=== PATIENT | female | born 2005 | race Hispanic/Latino ===

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

== ENCOUNTER → 2023-01-21 | Outpatient (REF) | payer OTHER ==
[~2023-01-21] MED LIST changes: +LAMO25TA4 PO
[2023-01-21 18:16] LABS: BASO # 0.1 10^3/uL (0.0-0.2); BASO % 0.7 % (0.0-1.0); EOS # 0.4 10^3/uL (0.0-0.5); EOS % 4.1 % (0.0-3.0); HEMATOCRIT 33.4 % (36.0-47.0); HEMOGLOBIN 11.4 g/dl (12.0-15.5); LYMPH % 18.2 % (24.0-44.0); MEAN CORPUSCULAR HEMOGLOBIN 27.7 pg (27.0-33.0); MEAN CORPUSCULAR HGB CONC 34.1 g/dl (32.0-36.5); MEAN CORPUSCULAR VOLUME 81.3 fl (80.0-96.0); MONO # 0.6 10^3/uL (0.0-0.8); MONO % 5.8 % (2.0-8.0); NEUTROPHILS # 7.7 10^3/uL (1.5-8.5); NEUTROPHILS % 70.9 % (36.0-66.0); PLATELET COUNT, AUTOMATED 291 10^3/uL (150-450); RED BLOOD COUNT 4.11 10^6/uL (4.00-5.40); WHITE BLOOD COUNT 10.8 10^3/uL (4.0-10.0)
[2023-01-21 18:48] LABS: ALBUMIN 3.6 G/DL (3.2-5.2); ALKALINE PHOSPHATASE 67 U/L (46-116); ALT/SGPT 12 U/L (7.0-40); AST/SGOT 17 U/L (<34); BILIRUBIN,TOTAL 0.3 MG/DL (0.3-1.2); BLOOD UREA NITROGEN 7 MG/DL (9-23); CALCIUM LEVEL 9.2 MG/DL (8.5-10.1); CARBON DIOXIDE LEVEL 25 MMOL/L (20-31); CHLORIDE LEVEL 108 MMOL/L (98-107); GLUCOSE, FASTING 83 MG/DL (60-100); SODIUM LEVEL 141 MMOL/L (136-145); TOTAL PROTEIN 5.6 G/DL (5.7-8.2)
[2023-01-21 18:56] LABS: HCG, SERUM QUALITATIVE NEGATIVE (NEGATIVE)
== END ==
LOC: M LAB REF 16:37
PROVIDERS: ATTEND Nurse Practitioner Family
DX: R56.9 Unspecified convulsions (principal)

== ENCOUNTER → 2023-03-01 | Outpatient (REF) | payer OTHER | LOC: M LAB REF 16:20 | PROVIDERS: ATTEND Nurse Practitioner Family | DX: E83.42 Hypomagnesemia (principal) ==

== ENCOUNTER 2023-03-19 18:30 | Emergency (ER) | payer OTHER ==
[~2023-03-19] VITALS: Ht 162.6 cm; Wt 48.6 kg
[2023-03-19 21:27] LABS: RSV AMPLIFICATION NEGATIVE (NEGATIVE)
[2023-03-19 22:27] VITALS: BP 104/62; TEMP 98.5; O2SAT 98
[2023-03-19] MEDS ORDERED: DOXYCYCLINE HYCLATE 100MG TABLET PO ONE (22:45)
[2023-03-19] MEDS ORDERED: AFRISPR3 (23:10)
[2023-03-19] MEDS ORDERED: FLON1SPR NARES (23:10)
[2023-03-19] MEDS ORDERED: DOXY100T PO (23:10)
== END 2023-03-19 23:24 | disposition home or self-care (01) ==
LOC: M ED 18:30
DX: H65.03 Acute serous otitis media, bilateral (principal); L03.032 Cellulitis of left toe; G40.909 Epilepsy, unspecified, not intractable, without status epilepticus; J45.909 Unspecified asthma, uncomplicated; F17.290 Nicotine dependence, other tobacco product, uncomplicated

== ENCOUNTER → 2023-06-29 | Outpatient (REF) | payer OTHER ==
[~2023-06-29] MED LIST changes: +AFRISPR3; +DOXY100T PO; +FLON1SPR NARES
== END ==
LOC: M LAB REF 10:23
PROVIDERS: ATTEND Nurse Practitioner Family
DX: J02.9 Acute pharyngitis, unspecified (principal)

== ENCOUNTER 2023-07-12 13:57 | Emergency (ER) | payer OTHER ==
[~2023-07-12] VITALS: Ht 157.5 cm; Wt 48.9 kg
[2023-07-12 15:12] LABS: IONIZED CALCIUM 4.7 MG/DL (4.5-5.3)
[2023-07-12] MEDS: NS 1,000 ML IV ONE (15:13)
[2023-07-12] MEDS: lamoTRIgine 25MG TAB PO ONE ×2 (15:13→17:23)
[2023-07-12] MEDS: levETIRAcetam INJection 1,000 MG in D5W 100 ML IV ONE (15:13)
[2023-07-12 15:27] LABS: BASO # 0.1 10^3/uL (0.0-0.2); BASO % 0.6 % (0.0-1.0); EOS # 0.4 10^3/uL (0.0-0.5); EOS % 4.1 % (0.0-3.0); HEMATOCRIT 35.1 % (36.0-47.0); HEMOGLOBIN 12.2 g/dl (12.0-15.5); LYMPH # 2.3 10^3/uL (1.5-5.0); LYMPH % 27.5 % (24.0-44.0); MEAN CORPUSCULAR HEMOGLOBIN 27.1 pg (27.0-33.0); MEAN CORPUSCULAR HGB CONC 34.8 g/dl (32.0-36.5); MONO # 0.9 10^3/uL (0.0-0.8); MONO % 10.9 % (2.0-8.0); NEUTROPHILS # 4.8 10^3/uL (1.5-8.5); NEUTROPHILS % 56.5 % (36.0-66.0); PLATELET COUNT, AUTOMATED 357 10^3/uL (150-450); WHITE BLOOD COUNT 8.5 10^3/uL (4.0-10.0)
[2023-07-12 15:52] LABS: ALKALINE PHOSPHATASE 61 U/L (46-116); ALT/SGPT 20 U/L (7.0-40); AST/SGOT 32 U/L (<34); BILIRUBIN,DIRECT 0.1 MG/DL (<0.4); BILIRUBIN,TOTAL 0.4 MG/DL (0.3-1.2); BLOOD UREA NITROGEN 13 MG/DL (9-23); CALCIUM LEVEL 9.6 MG/DL (8.5-10.1); CARBON DIOXIDE LEVEL 25 MMOL/L (20-31); CHLORIDE LEVEL 101 MMOL/L (98-107); CREATININE FOR GFR 0.47 MG/DL (0.55-1.30); GLUCOSE, FASTING 82 MG/DL (60-100); MAGNESIUM LEVEL 1.7 MG/DL (1.8-2.4); PHOSPHORUS LEVEL 3.3 MG/DL (2.5-4.9); POTASSIUM SERUM 4.2 MMOL/L (3.5-5.1); SODIUM LEVEL 137 MMOL/L (136-145); TOTAL PROTEIN 6.6 G/DL (5.7-8.2)
[2023-07-12 16:08] LABS: RSV AMPLIFICATION NEGATIVE (NEGATIVE)
[2023-07-12] MEDS ORDERED: KEPP10002 PO (17:52)
[2023-07-12] MEDS ORDERED: LAMO100T3 PO (17:52)
[2023-07-12] MEDS ORDERED: KEPP250T5 PO (18:23)
[2023-07-12 18:30] VITALS: BP 105/62; TEMP 98.7; O2SAT 99
== END 2023-07-12 18:30 | disposition home or self-care (01) ==
LOC: M ED 13:57
DX: G40.909 Epilepsy, unspecified, not intractable, without status epilepticus (principal); U07.1 COVID-19; Z91.018 Allergy to other foods; Z79.899 Other long term (current) drug therapy; Z79.2 Long term (current) use of antibiotics; Z79.51 Long term (current) use of inhaled steroids
CPT/HCPCS: 70450; 80048; 80076; 80175; 80180; 82140; 82330; 83605; 83735; 84100; 85025; 87040; 87631; 93041; 94760; 96361; 96365; 99285; J1953

== ENCOUNTER → 2023-07-29 | Outpatient (REF) | payer OTHER | LOC: EEVIPCON 16:46 → M LAB REF 16:46 | PROVIDERS: ATTEND Physician Assistant | DX: L03.211 Cellulitis of face (principal) ==

== ENCOUNTER 2023-08-30 14:00 | Emergency (ER) | payer OTHER ==
[~2023-08-30] VITALS: Ht 162.6 cm; Wt 49.5 kg
[2023-08-30 14:01] VITALS: BP 129/87; TEMP 97.8; O2SAT 99
[2023-08-30] MEDS ORDERED: KEPP250T5 PO (15:02)
[2023-08-30] MEDS ORDERED: KEPP10002 PO (15:02)
[2023-08-30] MEDS ORDERED: LAMO100T80 PO (15:02)
== END 2023-08-30 15:23 | disposition home or self-care (01) ==
LOC: M ED 14:00
DX: Z76.0 Encounter for issue of repeat prescription (principal)

== ENCOUNTER 2023-09-01 16:55 | Emergency (ER) | payer OTHER ==
[~2023-09-01] VITALS: Ht 162.6 cm; Wt 50.0 kg
[2023-09-01 16:55] VITALS: BP 110/73; TEMP 98.8; O2SAT 96
== END 2023-09-01 19:04 | disposition left against medical advice (07) ==
LOC: M ED 16:55
DX: Z53.21 Procedure and treatment not carried out due to patient leaving prior to being seen by health care provider (principal)

== ENCOUNTER 2023-10-08 16:08 | Emergency (ER) | payer OTHER ==
[~2023-10-08] VITALS: Ht 162.6 cm; Wt 52.3 kg
[2023-10-08] MEDS ORDERED: VANCOMYCIN HCL 1,000 MG in IV FLUID PLACE HOLDER 1 EA IV ONE (18:40)
[2023-10-08 18:50] LABS: BASO # 0.1 10^3/uL (0.0-0.2); BASO % 0.7 % (0.0-1.0); EOS # 0.3 10^3/uL (0.0-0.5); EOS % 3.2 % (0.0-3.0); HEMATOCRIT 36.1 % (36.0-47.0); HEMOGLOBIN 11.8 g/dl (12.0-15.5); LYMPH # 1.9 10^3/uL (1.5-5.0); LYMPH % 19.3 % (24.0-44.0); MEAN CORPUSCULAR HEMOGLOBIN 25.4 pg (27.0-33.0); MEAN CORPUSCULAR HGB CONC 32.7 g/dl (32.0-36.5); MEAN CORPUSCULAR VOLUME 77.6 fl (80.0-96.0); MONO # 0.9 10^3/uL (0.0-0.8); MONO % 9.4 % (2.0-8.0); NEUTROPHILS # 6.5 10^3/uL (1.5-8.5); PLATELET COUNT, AUTOMATED 408 10^3/uL (150-450); RED BLOOD COUNT 4.65 10^6/uL (4.00-5.40); WHITE BLOOD COUNT 9.7 10^3/uL (4.0-10.0)
[2023-10-08 18:55] LABS: ERYTHROCYTE SEDIMENTATION RATE 19 mm/hr (0-20)
[2023-10-08] MEDS: NS 1,000 ML IV ONE (19:22)
[2023-10-08] MEDS: KETOROLAC 30 MG/ML 1ML VIAL IV ONE (19:23)
[2023-10-08] MEDS: methylPREDNISolone 40MG 1ML VIAL IV ONE (19:23)
[2023-10-08] MEDS: VANCOMYCIN HCL 1,000 MG, VIAL MATE ADAPTER 1 EACH in D5W 250 ML IV ONE (19:24)
[2023-10-08] MEDS: diphenhydrAMINE 50MG/ML VIAL IV STA (20:36)
[2023-10-08] MEDS: ONDANSETRON 4MG 2ML VIAL IV ONE (20:36)
[2023-10-08] MEDS: MORPHINE 2 MG/ML 1ML VIAL IV ONE (20:36)
[2023-10-08 21:51] VITALS: BP 93/58; TEMP 97.3; O2SAT 98
[2023-10-08] MEDS: LIDOCAINE 2% MDV 20ML VIAL SC ONE (22:00)
[2023-10-08] MEDS ORDERED: BACT800T5 PO (22:54)
[2023-10-08] MEDS ORDERED: LEVE250T5 PO (23:10)
[2023-10-08] MEDS ORDERED: HOME MED LIST COMPLETE! XX SCH (23:15)
== END 2023-10-08 22:55 | disposition left against medical advice (07) ==
LOC: M ED 16:08
DX: L02.413 Cutaneous abscess of right upper limb (principal); R56.9 Unspecified convulsions; J45.909 Unspecified asthma, uncomplicated; F41.9 Anxiety disorder, unspecified; F17.290 Nicotine dependence, other tobacco product, uncomplicated; Z79.899 Other long term (current) drug therapy
CPT/HCPCS: 76882; 80047; 83605; 84702; 85025; 85652; 86140; 87040; 87070; 87077; 87186; 87205; 96374; 96375; 99281; J1200; J1885; J2405; J2919; J3370

== ENCOUNTER 2023-10-09 18:50 | Emergency (ER) | payer OTHER ==
[~2023-10-09] VITALS: Ht 162.6 cm; Wt 52.3 kg
[~2023-10-09 18:50] MED LIST changes: +LEVE250T5 PO
[2023-10-09] MEDS ORDERED: ISOVUE-370 76% 100ML VIAL As Ordered ONE (21:02)
[2023-10-09 21:23] LABS: BASO # 0.1 10^3/uL (0.0-0.2); BASO % 0.6 % (0.0-1.0); EOS # 0.2 10^3/uL (0.0-0.5); EOS % 2.1 % (0.0-3.0); HEMATOCRIT 31.6 % (36.0-47.0); HEMOGLOBIN 10.4 g/dl (12.0-15.5); LYMPH # 2.9 10^3/uL (1.5-5.0); LYMPH % 29.7 % (24.0-44.0); MEAN CORPUSCULAR HEMOGLOBIN 25.8 pg (27.0-33.0); MEAN CORPUSCULAR HGB CONC 32.9 g/dl (32.0-36.5); MEAN CORPUSCULAR VOLUME 78.4 fl (80.0-96.0); MONO # 1.1 10^3/uL (0.0-0.8); MONO % 11.6 % (2.0-8.0); NEUTROPHILS # 5.4 10^3/uL (1.5-8.5); NEUTROPHILS % 55.3 % (36.0-66.0); PLATELET COUNT, AUTOMATED 411 10^3/uL (150-450); RED BLOOD COUNT 4.03 10^6/uL (4.00-5.40); WHITE BLOOD COUNT 9.8 10^3/uL (4.0-10.0)
[2023-10-09 21:37] LABS: ERYTHROCYTE SEDIMENTATION RATE 9 mm/hr (0-20)
[2023-10-09] MEDS: KETOROLAC 30 MG/ML 1ML VIAL IV ONE (21:49)
[2023-10-09] MEDS: DALBAVANCIN 1,500 MG in D5W 250 ML IV ONE (21:50)
[2023-10-09 21:58] VITALS: BP 99/63; TEMP 97.7; O2SAT 100
[2023-10-09 21:58] LABS: BLOOD UREA NITROGEN 7 MG/DL (9-23); CALCIUM LEVEL 9.3 MG/DL (8.5-10.1); CARBON DIOXIDE LEVEL 28 MMOL/L (20-31); CHLORIDE LEVEL 107 MMOL/L (98-107); CREATININE FOR GFR 0.59 MG/DL (0.55-1.30); GLUCOSE, FASTING 65 MG/DL (60-100); HCG, SERUM QUALITATIVE NEGATIVE (NEGATIVE); POTASSIUM SERUM 3.9 MMOL/L (3.5-5.1); SODIUM LEVEL 141 MMOL/L (136-145)
[2023-10-09] MEDS: NS 1,000 ML IV ONE (22:25)
[2023-10-09] MEDS: diphenhydrAMINE 50MG/ML VIAL IV STA (22:25)
== END 2023-10-09 23:47 | disposition left against medical advice (07) ==
LOC: M ED 18:50
DX: L02.413 Cutaneous abscess of right upper limb (principal); B95.61 Methicillin susceptible Staphylococcus aureus infection as the cause of diseases classified elsewhere; Z53.9 Procedure and treatment not carried out, unspecified reason; J45.909 Unspecified asthma, uncomplicated; R56.9 Unspecified convulsions; Z79.899 Other long term (current) drug therapy; Z91.010 Allergy to peanuts
CPT/HCPCS: 71260; 80048; 83605; 84703; 85025; 85652; 86140; 96365; 96375; 99284; J0875; J1200; J1885; Q9967

== ENCOUNTER 2024-07-31 16:05 | Emergency (ER) | payer OTHER ==
[~2024-07-31] VITALS: Ht 160 cm; Wt 50.1 kg
[~2024-07-31 16:05] MED LIST changes: +EMTRICITABINE/TENOFOVIR 200MG/300MG TABLET PO SCH; +RALTEGRAVIR 400 MG TAB (ISENTRESS) PO SCH
[2024-07-31 16:12] VITALS: TEMP 98.1
[2024-07-31] MEDS ORDERED: EMTR1TAB16 PO (17:05)
[2024-07-31] MEDS ORDERED: RALT40TA PO (17:05)
[2024-07-31] MEDS ORDERED: EXPOSURE KIT-ADULT 7 DAY SUPPLY PO ONE (17:10)
[2024-07-31 17:24] LABS: BASO # 0.1 10^3/uL (0.0-0.2); BASO % 0.5 % (0.0-1.0); EOS # 0.2 10^3/uL (0.0-0.5); EOS % 1.4 % (0.0-3.0); HEMATOCRIT 34.8 % (36.0-47.0); HEMOGLOBIN 11.3 g/dl (12.0-15.5); LYMPH # 2.7 10^3/uL (1.5-5.0); LYMPH % 25.5 % (24.0-44.0); MEAN CORPUSCULAR HEMOGLOBIN 24.9 pg (27.0-33.0); MEAN CORPUSCULAR HGB CONC 32.5 g/dl (32.0-36.5); MEAN CORPUSCULAR VOLUME 76.7 fl (80.0-96.0); MONO # 0.7 10^3/uL (0.0-0.8); MONO % 7.1 % (2.0-8.0); NEUTROPHILS # 6.8 10^3/uL (1.5-8.5); NEUTROPHILS % 65.2 % (36.0-66.0); PLATELET COUNT, AUTOMATED 473 10^3/uL (150-450); RED BLOOD COUNT 4.54 10^6/uL (4.00-5.40); WHITE BLOOD COUNT 10.5 10^3/uL (4.0-10.0)
[2024-07-31] MEDS: LIDOCAINE 1% SDV 5ML VIAL DILUENT ONE (17:29)
[2024-07-31] MEDS: cefTRIAXone 500MG VIAL IM ONE (17:29)
[2024-07-31] MEDS: AZITHROMYCIN 250MG TABLET PO ONE (17:30)
[2024-07-31 17:50] LABS: ALBUMIN 3.6 G/DL (3.2-5.2); ALKALINE PHOSPHATASE 62 U/L (35-104); ALT/SGPT 13 U/L (7.0-40); AST/SGOT 15 U/L (<34); BILIRUBIN,TOTAL 0.3 MG/DL (0.3-1.2); BLOOD UREA NITROGEN 8 MG/DL (9-23); CALCIUM LEVEL 9.1 MG/DL (8.5-10.1); CARBON DIOXIDE LEVEL 27 MMOL/L (20-31); CHLORIDE LEVEL 108 MMOL/L (98-107); CREATININE FOR GFR 0.65 MG/DL (0.55-1.30); GLOMERULAR FILTRATION RATE > 90.0 (>60); GLUCOSE, FASTING 98 MG/DL (60-100); POTASSIUM SERUM 3.9 MMOL/L (3.5-5.1); SODIUM LEVEL 144 MMOL/L (136-145); TOTAL PROTEIN 5.9 G/DL (5.7-8.2)
[2024-07-31 17:59] LABS: HEPATITIS B SURFACE ANTIBODY NEGATIVE (POSITIVE)
[2024-07-31 18:02] LABS: HCG, SERUM QUALITATIVE NEGATIVE (NEGATIVE)
[2024-07-31 18:11] LABS: HEPATITIS B SURFACE ANTIGEN NEGATIVE (NEGATIVE)
[2024-07-31 18:23] LABS: HIV 1&2 SCREEN NEGATIVE (NEGATIVE)
[2024-07-31 18:31] LABS: HEPATITIS C VIRUS ABY INDEX < 0.02 INDEX (<0.8)
[2024-07-31] MEDS: RALTEGRAVIR 400 MG TAB (ISENTRESS) PO ONE (18:46)
[2024-07-31] MEDS: ULIPRISTAL ACETATE 30MG TAB (ELLA) PO ONE (18:46)
[2024-07-31] MEDS: EMTRICITABINE/TENOFOVIR 200MG/300MG TABLET PO ONE (18:46)
[2024-07-31] MEDS: metroNIDAZOLE (FLAGYL) 500MG TABLET PO ONE (18:47)
[2024-07-31] MEDS: HEPATITIS B VACCINE 20MCG/ML 1ML SYRINGE (ADULT DOSE) IM.IMMUN ONE (18:55)
[2024-07-31 19:14] VITALS: BP 110/56; O2SAT 98
== END 2024-07-31 19:15 | disposition home or self-care (01) ==
LOC: M ED 16:05
DX: T76.21XA Adult sexual abuse, suspected, initial encounter (principal); Y92.009 Unspecified place in unspecified non-institutional (private) residence as the place of occurrence of the external cause; G40.909 Epilepsy, unspecified, not intractable, without status epilepticus; J45.909 Unspecified asthma, uncomplicated; Z79.899 Other long term (current) drug therapy; Z23 Encounter for immunization
CPT/HCPCS: 36415; 80053; 84703; 85025; 86706; 86780; 86803; 87340; 87389; 90471; 90746; 96372; 99283; J0696

== ENCOUNTER 2024-08-19 19:01 | Emergency (ER) | payer OTHER ==
[~2024-08-19] VITALS: Ht 160 cm; Wt 51.6 kg
[~2024-08-19 19:01] MED LIST changes: +EMTR1TAB16 PO; -EMTRICITABINE/TENOFOVIR 200MG/300MG TABLET PO SCH; +RALT40TA PO; -RALTEGRAVIR 400 MG TAB (ISENTRESS) PO SCH
[2024-08-19 20:56] VITALS: BP 109/71; TEMP 99.4; O2SAT 100
[2024-08-21] MEDS ORDERED: LAMO100T3 PO (18:36)
[2024-08-21] MEDS ORDERED: KEPP10002 PO (18:36)
[2024-08-21] MEDS ORDERED: LEVE250T5 PO (18:36)
== END 2024-08-20 00:05 | disposition left against medical advice (07) ==
LOC: M ED 19:01
DX: Z53.21 Procedure and treatment not carried out due to patient leaving prior to being seen by health care provider (principal)

== ENCOUNTER 2024-08-21 16:11 | Emergency (ER) | payer OTHER ==
[~2024-08-21] VITALS: Ht 160 cm; Wt 45.2 kg
[2024-08-21] MEDS: levETIRAcetam INJection 1,500 MG in IV 1 EA IV ONE (16:42)
[2024-08-21 16:49] LABS: HEMATOCRIT 38.8 % (36.0-47.0); HEMOGLOBIN 12.6 g/dl (12.0-15.5); MEAN CORPUSCULAR HEMOGLOBIN 25.6 pg (27.0-33.0); MEAN CORPUSCULAR HGB CONC 32.5 g/dl (32.0-36.5); MEAN CORPUSCULAR VOLUME 78.9 fl (80.0-96.0); PLATELET COUNT, AUTOMATED 400 10^3/uL (150-450); RED BLOOD COUNT 4.92 10^6/uL (4.00-5.40); WHITE BLOOD COUNT 13.5 10^3/uL (4.0-10.0)
[2024-08-21 17:03] VITALS: TEMP 98
[2024-08-21 17:12] LABS: HCG, SERUM QUALITATIVE NEGATIVE (NEGATIVE)
[2024-08-21 17:14] LABS: BLOOD UREA NITROGEN 13 MG/DL (9-23); CARBON DIOXIDE LEVEL 16 MMOL/L (20-31); CHLORIDE LEVEL 104 MMOL/L (98-107); CREATININE FOR GFR 0.67 MG/DL (0.55-1.30); GLOMERULAR FILTRATION RATE > 90.0 (>60); GLUCOSE, FASTING 100 MG/DL (60-100); POTASSIUM SERUM 4.2 MMOL/L (3.5-5.1); SODIUM LEVEL 141 MMOL/L (136-145)
[2024-08-21 18:30] VITALS: BP 89/63; O2SAT 98
[2024-08-21] MEDS ORDERED: LEVE250T5 PO (18:36)
[2024-08-21] MEDS ORDERED: KEPP10002 PO (18:36)
[2024-08-21] MEDS ORDERED: LAMO100T3 PO (18:36)
[2024-08-22] MEDS ORDERED: LAMO100T3 PO (04:03)
[2024-08-22] MEDS ORDERED: LEVE250T5 PO (04:03)
[2024-08-25 23:07] LABS: LEVETIRACETAM (KEPPRA) < 2.0 mcg/mL (6.0-46.0)
== END 2024-08-21 18:55 | disposition home or self-care (01) ==
LOC: M ED 16:11
DX: G40.909 Epilepsy, unspecified, not intractable, without status epilepticus (principal); J45.909 Unspecified asthma, uncomplicated; Z79.899 Other long term (current) drug therapy; Z91.018 Allergy to other foods
CPT/HCPCS: 80048; 80175; 80177; 84703; 85027; 96365; 99284; J1953

== ENCOUNTER 2024-08-21 22:12 | Emergency (ER) | payer OTHER ==
[~2024-08-21] VITALS: Ht 157.5 cm; Wt 44.9 kg
[2024-08-21 22:48] LABS: VENOUS BASE EXCESS -4.1 (-2.0-2.0); VENOUS HCO3 19.3 MMOL/L (23.0-27.0); VENOUS O2 SATURATION 96.6 % (60.0-80.0); VENOUS PARTIAL PRESSURE CO2 30.5 mmHg (38.0-50.0); VENOUS PARTIAL PRESSURE O2 114.4 mmHg (30.0-50.0); VENOUS TOTAL CO2 20.3 MMOL/L (24.0-28.0)
[2024-08-21 22:58] LABS: BASO # 0.1 10^3/uL (0.0-0.2); BASO % 0.8 % (0.0-1.0); EOS # 0.1 10^3/uL (0.0-0.5); EOS % 1.3 % (0.0-3.0); HEMATOCRIT 33.5 % (36.0-47.0); HEMOGLOBIN 11.3 g/dl (12.0-15.5); LYMPH # 2.5 10^3/uL (1.5-5.0); LYMPH % 25.3 % (24.0-44.0); MEAN CORPUSCULAR HGB CONC 33.7 g/dl (32.0-36.5); MEAN CORPUSCULAR VOLUME 77.2 fl (80.0-96.0); MONO # 1.2 10^3/uL (0.0-0.8); MONO % 11.9 % (2.0-8.0); NEUTROPHILS # 5.8 10^3/uL (1.5-8.5); NEUTROPHILS % 60.4 % (36.0-66.0); PLATELET COUNT, AUTOMATED 316 10^3/uL (150-450); RED BLOOD COUNT 4.34 10^6/uL (4.00-5.40); WHITE BLOOD COUNT 9.7 10^3/uL (4.0-10.0)
[2024-08-21] MEDS: lamoTRIgine 100MG TAB PO ONE (23:07)
[2024-08-21 23:23] LABS: ALBUMIN 4.3 G/DL (3.2-5.2); ALKALINE PHOSPHATASE 62 U/L (35-104); ALT/SGPT 22 U/L (7.0-40); AST/SGOT 21 U/L (<34); BILIRUBIN,DIRECT 0.2 MG/DL (<0.4); BILIRUBIN,TOTAL 0.6 MG/DL (0.3-1.2); BLOOD UREA NITROGEN 12 MG/DL (9-23); CALCIUM LEVEL 9.7 MG/DL (8.5-10.1); CARBON DIOXIDE LEVEL 22 MMOL/L (20-31); CHLORIDE LEVEL 107 MMOL/L (98-107); CREATININE FOR GFR 0.66 MG/DL (0.55-1.30); GLOMERULAR FILTRATION RATE > 90.0 (>60); GLUCOSE, FASTING 81 MG/DL (60-100); PHOSPHORUS LEVEL 4.2 MG/DL (2.5-4.9); SODIUM LEVEL 142 MMOL/L (136-145); TOTAL PROTEIN 6.6 G/DL (5.7-8.2)
[2024-08-22] MEDS ORDERED: LAMO100T3 PO (04:03)
[2024-08-22] MEDS ORDERED: LEVE250T5 PO (04:03)
[2024-08-22] MEDS: lamoTRIgine 100MG TAB PO ONE (04:06)
[2024-08-22] MEDS: NS (Normal Saline) 0.9% 1,000 ML IV ONE (04:11)
[2024-08-22 05:30] VITALS: BP 105/58; TEMP 98.3; O2SAT 100
== END 2024-08-22 05:50 | disposition home or self-care (01) ==
LOC: M ED 22:12
DX: G40.89 Other seizures (principal); F41.9 Anxiety disorder, unspecified; Z79.899 Other long term (current) drug therapy; Z91.018 Allergy to other foods

== ENCOUNTER 2024-10-26 14:07 | Emergency (ER) | payer MEDICAID, OTHER ==
[~2024-10-26] VITALS: Ht 160 cm; Wt 53.3 kg
[~2024-10-26 14:07] MED LIST changes: +CIPRHCOTIC OTIC; +LAMO-18; +LAMO-18 PO; -LAMO25TA4; -LAMO25TA4 PO; +LEVE10003 PO; +SERT25TA21 PO
[2024-10-26] MEDS ORDERED: LAMO100T80 PO (21:45)
[2024-10-26 21:49] VITALS: BP 108/59; TEMP 97.2; O2SAT 99
== END 2024-10-26 21:50 | disposition home or self-care (01) ==
LOC: M ED 14:07
DX: Z76.0 Encounter for issue of repeat prescription (principal); G40.909 Epilepsy, unspecified, not intractable, without status epilepticus; F17.290 Nicotine dependence, other tobacco product, uncomplicated; Z79.899 Other long term (current) drug therapy; Z91.018 Allergy to other foods

== ENCOUNTER 2024-12-11 18:53 | Emergency (ER) | payer OTHER ==
[~2024-12-11] VITALS: Ht 160 cm; Wt 52.4 kg
[2024-12-11] MEDS ORDERED: KEPP250T5 PO (22:46)
[2024-12-11] MEDS ORDERED: LAMI1TAB7 PO (22:46)
[2024-12-11] MEDS ORDERED: KEPP10002 PO (22:46)
[2024-12-12] MEDS: levETIRAcetam INJection 1,000 MG in IV 1 EA IV ONE (00:04)
[2024-12-12 00:20] LABS: VENOUS BASE EXCESS -6.4 (-2.0-2.0); VENOUS HCO3 17.7 MMOL/L (23.0-27.0); VENOUS O2 SATURATION 97.3 % (60.0-80.0); VENOUS PARTIAL PRESSURE CO2 30.8 mmHg (38.0-50.0); VENOUS PARTIAL PRESSURE O2 164.1 mmHg (30.0-50.0); VENOUS PH 7.377 UNITS (7.330-7.430); VENOUS STANDARD HCO3 19.2 MMOL/L; VENOUS TOTAL CO2 18.6 MMOL/L (24.0-28.0)
[2024-12-12 00:21] LABS: BASO # 0.1 10^3/uL (0.0-0.2); BASO % 0.7 % (0.0-1.0); EOS # 0.3 10^3/uL (0.0-0.5); EOS % 2.8 % (0.0-3.0); LYMPH # 2.7 10^3/uL (1.5-5.0); LYMPH % 27.9 % (24.0-44.0); MONO # 1.1 10^3/uL (0.0-0.8); MONO % 11.2 % (2.0-8.0); NEUTROPHILS # 5.5 10^3/uL (1.5-8.5); NEUTROPHILS % 57.2 % (36.0-66.0); PLATELET COUNT, AUTOMATED 338 10^3/uL (150-450)
[2024-12-12] MEDS: lamoTRIgine 100 MG TAB PO ONE (00:24)
[2024-12-12 00:50] LABS: ALT/SGPT 21 U/L (7.0-40); AST/SGOT 23 U/L (<34); CALCIUM LEVEL 10.2 MG/DL (8.5-10.1); CARBON DIOXIDE LEVEL 22 MMOL/L (20-31); CHLORIDE LEVEL 107 MMOL/L (98-107); CREATININE FOR GFR 0.67 MG/DL (0.55-1.30); GLOMERULAR FILTRATION RATE > 90.0 (>60); MAGNESIUM LEVEL 1.7 MG/DL (1.8-2.4); PHOSPHORUS LEVEL 3.9 MG/DL (2.5-4.9); POTASSIUM SERUM 4.2 MMOL/L (3.5-5.1); SODIUM LEVEL 143 MMOL/L (136-145)
[2024-12-12] MEDS ORDERED: NS (Normal Saline) 0.9% 1,000 ML IV ONE (00:55)
[2024-12-12 01:00] VITALS: O2SAT 98
[2024-12-12 01:14] VITALS: BP 117/74; TEMP 97.8
[2024-12-12 01:38] LABS: PHENCYCLIDINE URINE NEGATIVE (NEGATIVE)
[2024-12-12 01:39] LABS: AMPHETAMINES LEVEL URINE NEGATIVE (NEGATIVE); BARBITURATES URINE NEGATIVE (NEGATIVE); BENZODIAZEPINES URINE NEGATIVE (NEGATIVE); CANNABINOIDS URINE NEGATIVE (NEGATIVE); COCAINE METABOLITE URINE NEGATIVE (NEGATIVE); METHADONE URINE NEGATIVE (NEGATIVE); OPIATES URINE NEGATIVE (NEGATIVE)
[2024-12-14 19:22] LABS: LEVETIRACETAM (KEPPRA) 14.1 mcg/mL (6.0-46.0)
[2024-12-15 03:17] LABS: LAMOTRIGINE (LAMICTAL) 2.7 mcg/mL (2.5-15.0)
== END 2024-12-12 01:27 | disposition left against medical advice (07) ==
LOC: M ED 18:53
DX: Z76.0 Encounter for issue of repeat prescription (principal); R56.9 Unspecified convulsions; Z53.9 Procedure and treatment not carried out, unspecified reason; J45.909 Unspecified asthma, uncomplicated; F41.9 Anxiety disorder, unspecified; F17.290 Nicotine dependence, other tobacco product, uncomplicated; Z79.899 Other long term (current) drug therapy; Z91.018 Allergy to other foods
CPT/HCPCS: 80048; 80076; 80175; 80177; 80307; 82140; 82330; 82803; 83605; 83735; 84100; 85025; 93041; 94760; 96365; 99284; J1953

== ENCOUNTER 2025-01-06 15:38 | Emergency (ER) | payer OTHER ==
[~2025-01-06 15:38] MED LIST changes: +LAMI1TAB7 PO
[2025-01-06 16:07] LABS: BASO # 0.1 10^3/uL (0.0-0.2); BASO % 0.7 % (0.0-1.0); EOS # 0.1 10^3/uL (0.0-0.5); EOS % 1.1 % (0.0-3.0); LYMPH # 2.3 10^3/uL (1.5-5.0); LYMPH % 25.6 % (24.0-44.0); MONO # 0.8 10^3/uL (0.0-0.8); MONO % 8.8 % (2.0-8.0); NEUTROPHILS # 5.7 10^3/uL (1.5-8.5); NEUTROPHILS % 63.6 % (36.0-66.0); PLATELET COUNT, AUTOMATED 335 10^3/uL (150-450)
[2025-01-06] MEDS: levETIRAcetam INJection 1,500 MG in IV 1 EA IV ONE (16:13)
[2025-01-06 16:31] LABS: ALT/SGPT 22 U/L (7.0-40); AST/SGOT 25 U/L (<34); CALCIUM LEVEL 10.0 MG/DL (8.5-10.1); CARBON DIOXIDE LEVEL 24 MMOL/L (20-31); CHLORIDE LEVEL 102 MMOL/L (98-107); CREATININE FOR GFR 0.64 MG/DL (0.55-1.30); GLOMERULAR FILTRATION RATE > 90.0 (>60); MAGNESIUM LEVEL 1.6 MG/DL (1.8-2.4); PHOSPHORUS LEVEL 3.0 MG/DL (2.5-4.9); POTASSIUM SERUM 3.7 MMOL/L (3.5-5.1); SODIUM LEVEL 141 MMOL/L (136-145)
[2025-01-06 16:38] LABS: HCG, SERUM QUALITATIVE NEGATIVE (NEGATIVE)
[2025-01-06] MEDS: MAG SULF 1GM/100ML (MAG RUN) 1 GM in IV 1 EA IV ONE (17:32)
[2025-01-06] MEDS: NS (Normal Saline) 0.9% 1,000 ML IV ONE (18:36)
[2025-01-06] MEDS ORDERED: LAMI1TAB7 PO (18:47)
[2025-01-06] MEDS: lamoTRIgine 100 MG TAB PO ONE (18:55)
[2025-01-06 20:18] VITALS: TEMP 96.9
[2025-01-06 21:45] VITALS: BP 112/76; O2SAT 99
[2025-01-10 06:02] LABS: LAMOTRIGINE (LAMICTAL) 0.6 mcg/mL (2.5-15.0)
[2025-01-10 12:03] LABS: LEVETIRACETAM (KEPPRA) 75.5 mcg/mL (6.0-46.0)
== END 2025-01-06 21:56 | disposition left against medical advice (07) ==
LOC: M ED 15:38
DX: G40.909 Epilepsy, unspecified, not intractable, without status epilepticus (principal); Z79.899 Other long term (current) drug therapy; Z91.018 Allergy to other foods
CPT/HCPCS: 70450; 80047; 80048; 80076; 80175; 80177; 82140; 82330; 83605; 83735; 84100; 84703; 85025; 93041; 94760; 96361; 96365; 96367; 96375; 99285; J1953; J2060; J3475

== ENCOUNTER 2025-02-08 21:33 | Emergency (ER) | payer OTHER ==
[~2025-02-08] VITALS: Ht 160 cm; Wt 53.2 kg
[2025-02-09] MEDS ORDERED: KEPP250T5 PO (02:16)
[2025-02-09] MEDS ORDERED: LAMI1TAB7 PO (02:16)
[2025-02-09] MEDS ORDERED: LEVE10003 PO (02:16)
[2025-02-09] MEDS: lamoTRIgine 100 MG TAB PO ONE (02:21)
[2025-02-09 02:30] VITALS: BP 99/65; TEMP 97.7; O2SAT 96
== END 2025-02-09 02:34 | disposition home or self-care (01) ==
LOC: M ED 21:33
DX: Z76.0 Encounter for issue of repeat prescription (principal); G40.909 Epilepsy, unspecified, not intractable, without status epilepticus; F17.290 Nicotine dependence, other tobacco product, uncomplicated; Z91.018 Allergy to other foods

== ENCOUNTER 2025-03-26 11:35 | Emergency (ER) | payer OTHER ==
[~2025-03-26] VITALS: Ht 160 cm; Wt 54.8 kg
[2025-03-26 11:38] VITALS: BP 120/87; TEMP 98.6; O2SAT 100
[2025-03-26] MEDS ORDERED: KEPP10002 PO (13:06)
[2025-03-26] MEDS ORDERED: LAMO100T80 PO (13:06)
[2025-03-26] MEDS ORDERED: LEVE250T5 PO (13:06)
== END 2025-03-26 13:11 | disposition home or self-care (01) ==
LOC: M ED 11:35
DX: Z76.0 Encounter for issue of repeat prescription (principal); R56.9 Unspecified convulsions; J45.909 Unspecified asthma, uncomplicated; F17.290 Nicotine dependence, other tobacco product, uncomplicated; Z79.899 Other long term (current) drug therapy; Z91.018 Allergy to other foods